=== PATIENT | male | born 1990 | race Caucasian/White ===

== ENCOUNTER 2016-11-01 10:18 | Emergency (ER) | payer SELFPAY ==
[2016-11-01 10:46] VITALS: BP 121/55
[2016-11-01] MEDS ORDERED: LIDOCAINE HCL 20 ML VIAL ONE (10:51)
--- NOTE | 2016-11-01 11:02 | ERNOTE ---
Integumentary HPI - Narrative Date of Service: 11/01/16 - General Presenting Symptoms: other - laceration Time Seen by Provider: 11/01/16 10:37 Source: patient Exam Limitations: no limitations - Immun/Allergies/Home Medications Home Medications: HOME MEDICATIONS Cephalexin Monohydrate [Keflex] 500 mg PO QID #40 cap 11/01/16 [Last Taken Unknown] - History of Present Illness Narrative: Pt. comes in with c/o Cutting his L knee with a chain saw yesterday morning at around 24 hours ago. Pt. was unsure if it was covered by insurance so delayed care until he knew. Pt. cleaned wound and applied a pressure dressing at the time of injury and states that his last tetanus was 4 years ago. Pt. denies any numbness tingling joint pain, SOB, or CP. Review of Systems - Review of Systems Constitutional: Present: no symptoms reported. Absent: recent illness, fever, chills, weakness, fatigue, weight loss EYE: Present: no symptoms reported ENT: Present: no symptoms reported Respiratory: Present: no symptoms reported. Absent: shortness of breath, cough , wheezing Cardiology: Present: no symptoms reported. Absent: chest pain, palpitations, edema Musculoskeletal: Present: no symptoms reported. Absent: back pain, muscle pain , neck pain, joint pain Skin: Present: other - laceration L knee 2 cm x 1 cm with clot in place over wound blood noted beneath wound and decompressed during exam small amount of dark sanguinous thick drainage Neurological: Present: no symptoms reported. Absent: dizziness/light-headedness , numbness, tingling All Other Systems: All systems neg except as marked Physical Exam - Physical Exam General Appearance: Present: wd/wn, alert, no apparent distress Head Exam: Present: normal inspection, no evidence of injury Eye Exam: Normal inspection: bilateral, PERRL: bilateral, EOMI: bilateral Respiratory: Present: no respiratory distress, normal breath sounds, no accessory muscle use, chest nontender, lungs clear Cardiovascular/Chest: Present: regular rate, rhythm, no murmur, normal peripheral pulses Back Exam: Present: normal inspection Extremity Exam: Present: normal range of motion, no edema, other - frontal knee tenderness over area that has laceration. Absent: bony tenderness Neurological Exam: Present: alert, oriented, normal mood/affect, no motor/ sensory deficits Skin Exam: Present: normal color, warm/dry, other - laceration L knee 2 cm x 1 cm with clot in place over wound blood noted beneath wound and decompressed during exam small amount of dark sanguinous thick drainage ED Progress - Date and Time Seen: Date and Time: 11/01/16 10:49 As wound happened 24 hours ago and is stable and clean do not feel taht suturing would be appropriate for this patient and feel that woulnd will heal well with secondary intention. - Vital Signs Patient's Vital Signs:: I have reviewed the patient's vital signs. - X-Ray X-Ray #1 X-Ray: knee Interpretation: Interp. by me X-ray Comments: no foreign body noted very minimal soft tissue damage noted on xray. Departure Clinical Impression: Laceration - Departure Disposition: Home self-care Condition: Good Instructions: Laceration Care, Adult, [id number] Additional Instructions: Please change dressing daily. Reapply pressure dressing daily after cleaning and checking wound until wound is no longer oozing. Please have wound checked by another physician in a week. Please seek medical attention for signs of infection. Prescriptions: Cephalexin Monohydrate [Keflex] 500 mg PO QID #40 cap
== END 2016-11-01 11:05 | disposition home or self-care (01) ==
LOC: ER 10:18
DX: S81.012A Laceration without foreign body, left knee, initial encounter (principal); W29.3XXA Contact with powered garden and outdoor hand tools and machinery, initial encounter; Y93.9 Activity, unspecified; Y92.9 Unspecified place or not applicable; Y99.9 Unspecified external cause status